=== PATIENT | female | born 1960 | race Two or more races ===

== ENCOUNTER 2016-09-15 08:00 | Day surgery (SDC) | payer OTHER ==
[~2016-09-15] VITALS: Ht 162.6 cm; Wt 49.7 kg
[2016-09-15] VITALS (9 sets, daily range): BP systolic 112–132; BP diastolic 66–75; PULSE 61–74; RESP 14–21; Ht 162.6 cm; Wt 49.7 kg
[2016-09-15] MEDS ORDERED: ACET500C5 PO (09:52)
[2016-09-15] MEDS ORDERED: MULTIVITAMIN (09:52)
[2016-09-15] MEDS ORDERED: MIDAZOLAM 1 MG/ML 2 ML INJ ONE ×2 (11:09→11:10)
[2016-09-15] MEDS ORDERED: ATROPINE 1 MG/10 ML SYRINGE ONE (11:09)
[2016-09-15] MEDS ORDERED: FENTAnyl 50 MCG/ML VIAL ONE (11:10)
--- NOTE | 2016-09-15 13:13 | GILP ---
DATE OF PROCEDURE: 09/15/2016 PROCEDURE: Colonoscopy. SURGEON: Jose Pagan MD INDICATION: A 56-year-old female undergoing this procedure for colon cancer screening. The risks o f the procedure, related and unrelated complications, anesthetic risks, sedative risks, alternatives discussed, informed consent was obtained. DESCRIPTION OF PROCEDURE: The patient was brought to the GI lab, sedated with Versed and fentanyl. After optimal sedation, digital examination done, which was normal. Scope was passed with much eas e into rectum, advanced through sigmoid, descending, transverse colon all the way into cecum. Appen diceal orifice and IC valve identified. While coming out, mucosa thoroughly inspected. The rest of the colon was normal. Retroflexion could not be done because of small rectum. Clarity and cleanli ness was good. Hemorrhoids identified. IMPRESSION: 1. Normal findings all the way into the cecum. 2. External hemorrhoids. 3. Clarity and cleanliness was good. PLAN: Stay on high-fiber diet. Dictated By: JOSE MICHELLE/ASHLEY Conf#: [id number] DID#: [id number] CC: JOES PAGAN MD;*EndCC*
== END 2016-09-15 12:21 | disposition home or self-care (01) ==
LOC: GIL 08:00
PROVIDERS: ATTEND Internal Medicine Gastroenterology
DX: Z12.11 Encounter for screening for malignant neoplasm of colon (principal); K64.4 Residual hemorrhoidal skin tags
CPT/HCPCS: 45378; J0461; J2250; J3010; Z7610